=== PATIENT | male | born 1970 | race Caucasian/White ===

== ENCOUNTER → 2016-12-17 | Outpatient (CLI) | payer BC ==
[2016-12-17 12:33] LABS: BASO % 0.4 %; BASO ABS # 0.03 K/uL (0-0.2); COMPLETE YES; EOS % 1.3 %; HEMATOCRIT 48.1 % (42-52); IG% 0.1 %; LYMPH % 28.2 %; MEAN CELL VOLUME 88.3 fL (80-100); MEAN CORPUSCULAR HEMOGLOBIN 30.1 pg (25-34); MEAN CORPUSCULAR HGB CONC 34.1 g/dl (32-36); MEAN PLATELET VOLUME 10.1 fL (7.4-10.4); MONO % 8.9 %; NEUT % 61.1 %; PLATELET COUNT 250 K/uL (130-400); RED BLOOD COUNT 5.45 M/uL (4.7-6.1)
[2016-12-17 12:55] LABS: ALT/SGPT 32 U/L (12-78); AST/SGOT 15 U/L (15-37); BLOOD UREA NITROGEN 20 mg/dl (7-18); BUN/CREATININE RATIO 19.8 (10-20); CARBON DIOXIDE 26 mmol/L (21-32); CHLORIDE 106 mmol/L (98-107); GLUCOSE 110 mg/dl (70-99); POTASSIUM 4.1 mmol/L (3.5-5.1); SODIUM 141 mmol/L (136-145)
[2016-12-17 13:07] LABS: ALKALINE PHOSPHATASE 65 U/L (45-117); CHOLESTEROL 190 mg/dl (0-200); CHOLESTEROL/HDL RATIO 3.5; HDL CHOLESTEROL 54 mg/dl; TRIGLYCERIDES 63 mg/dl (0-150); VERY LOW DENSITY LIPOPROT CALC 13 mg/dl
== END | disposition home or self-care (01) ==
LOC: C.LABSPEC 12:15
PROVIDERS: ATTEND Internal Medicine
DX: Z13.9 Encounter for screening, unspecified (principal); E78.5 Hyperlipidemia, unspecified; R53.83 Other fatigue; Z00.00 Encounter for general adult medical examination without abnormal findings

== ENCOUNTER → 2016-12-19 | Outpatient (CLI) | payer BC ==
[2016-12-20 06:12] LABS: ESTIMATED AVERAGE GLUCOSE 111 mg/dl; HA1C FLAG Normal (Normal)
== END | disposition home or self-care (01) ==
LOC: C.LABSPEC 13:15
PROVIDERS: ATTEND Internal Medicine
DX: R73.9 Hyperglycemia, unspecified (principal)